=== PATIENT | female | born 1960 | race Caucasian/White ===

== ENCOUNTER → 2023-07-21 | Outpatient (CLI) | payer MEDICARE, BC, SELFPAY ==
[2023-07-21 18:02] LABS: Ferritin 94 ng/mL (8-252)
[2023-07-25 12:08] LABS: Anti-Nuclear Antibody Test Positive (.)
== END | disposition home or self-care (01) ==
LOC: MTLAB 16:39
PROVIDERS: PCP Family Medicine; Referring Provider Physician Assistant; Visit Provider Physician Assistant
DX: L65.0 Telogen effluvium (principal); R63.4 Abnormal weight loss; E03.8 Other specified hypothyroidism; F43.0 Acute stress reaction
CPT/HCPCS: 36415; 82728; 86038

== ENCOUNTER 2023-08-16 15:08 | Emergency (ER) | payer MEDICARE, BC, SELFPAY ==
[2023-08-16 15:09] VITALS: BP 131/77; PULSE 98; RESP 16; TEMP 36.2; O2SAT 99; BMI 23.6
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
--- NOTE | 2023-08-16 15:15 | EKG12_ITS ---
Test Reason : DYSRHYTHMIA Blood Pressure : / mmHG Vent. Rate : 126 BPM Atrial Rate : 126 BPM P-R Int : 000 ms QRS Dur : 082 ms QT Int : 354 ms P-R-T Axes : 000 002 041 degrees QTc Int : 512 ms Sinus tachycardia with Sinus arrhythmia/PVC Abnormal ECG Confirmed by GINNA SOTO, VINCENZO ([id number]), news videotape editor CHADWICK MORALES ([id number]) on 08/24/2023 10:42:59 AM Referred By: SHAE Confirmed By:VINCENZO CHACKO MD
[2023-08-16 15:17] VITALS: O2SAT 97
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
[2023-08-16] MEDS: 0.9% Normal Saline (1000mL) 1,000 ML 1000 ML IV (15:32)
[2023-08-16] MEDS: Tetracaine 0.5% Ophthalmic Bottle 1 DRP OPHTHALMIC (15:33)
[2023-08-16] MEDS: Fluorescein 1 MG STRIP 1 STRIP OPHTHALMIC (15:33)
[2023-08-16 15:42] LABS: Absolute Lymphocyte Count 1.57 X10^3/uL (0.83-4.51); Absolute Neutrophil Count 5.1 X10^3/uL (2.0-7.7); Basophil# 0.02 X10^3/uL; Basophil% 0.3 % (0-1); Eosinophil# 0.02 X10^3/uL; Eosinophils% 0.3 % (0-5); Hematocrit 40.4 % (37-47); Hemoglobin 13.5 g/dL (12.0-15.0); Lymphocyte # 1.57 X10^3/ul (0.83-4.51); Lymphocyte % 21.7 % (19-41); Mean Corp Hgb Conc 33.4 g/dL (32-36); Mean Corpuscular Hgb 30.7 pg (27.0-32.0); Mean Corpuscular Volume 91.8 fL (81-99); Mean Platelet Vol. 9.1 fl (6.2-12.0); Monocyte# 0.42 X10^3/uL; Monocyte% 5.8 % (0-10); NRBC Flagged by Analyzer 0 % (0-5); Neutrophil # 5.12 X10^3/uL (2.7-7.7); Neutrophil % 70.8 % (47-70); Platelet Count 283 K/mm3 (150-450); RBC Distribution Width CV 13.2 % (11.6-14.6); White Blood Count 7.2 K/mm3 (4.4-11.0)
--- NOTE | 2023-08-16 15:50 | RAD_ITS ---
INDICATION: syncope EXAMINATION/TECHNIQUE: X-RAY - XR Chest 1 View COMPARISON: None. FINDINGS: The lungs are clear. Tortuous and calcified thoracic aorta. The heart is mildly enlarged. No pleural effusion or pneumothorax. No acute osseous abnormalities. RAD/Chest 1 View (Portable) IMPRESSION: No acute radiographic abnormalities. Electronically Signed: Miguel Lau MD at 16:52 EST ,
[2023-08-16 15:59] LABS: ALB/GLOB Ratio 1.1 RATIO (0.9-2.4); AST(SGOT) 23 U/L (15-37); Alanine Aminotransfer ALT/SGPT 32 U/L (13-56); Albumin, Serum 3.8 g/dL (3.2-5.0); Alkaline Phosphatase 64 U/L (45-117); Anion Gap 9 (5-15); BUN 11 mg/dL (7-18); BUN/Creat Ratio 17.9 RATIO (10-20); Calcium,Total 8.6 mg/dL (8.5-10.1); Chloride 108 mmol/L (98-107); Creatinine, Serum 0.61 mg/dL (0.55-1.02); EST Glomerular Filtration Rate 104 mL/min (>60); Est Glom Filt Rate - Afr Amer 126 mL/min (>60); Estimated Creatinine Clearance 76.06 ml/min; Globulin 3.4 g/dL (2.2-4.2); Glucose 116 mg/dL (74-106); Potassium 3.4 mmol/L (3.5-5.1); Protein, Total 7.2 g/dL (6.4-8.2); Sodium Level 140 mmol/L (136-145); Troponin-I HS (w/2H Reflex) 9 pg/mL (3.0-54.0)
[2023-08-16 16:16] LABS: Lactic Acid 1.7 mmol/L (0.4-1.9)
[2023-08-16 17:34] LABS: Reflex Troponin-HS? (from REC) Y
--- NOTE | 2023-08-16 18:33 | EKG12_ITS ---
Test Reason : DYSRHYTHMIA Blood Pressure : / mmHG Vent. Rate : 090 BPM Atrial Rate : 090 BPM P-R Int : 186 ms QRS Dur : 072 ms QT Int : 376 ms P-R-T Axes : 023 -05 048 degrees QTc Int : 459 ms Sinus rhythm with marked sinus arrhythmia with occasional Premature ventricular complexes Low voltage QRS Borderline ECG Confirmed by GINNA SOTO, VINCENZO ([id number]), industrial editor CHADWICK MORALES ([id number]) on 08/24/2023 10:42:11 AM Referred By: SHAE Confirmed By:VINCENZO CHACKO MD
[2023-08-16 18:51] LABS: Troponin-I HS 20 pg/mL (3.0-54.0)
[2023-08-16 19:08] VITALS: PULSE 83
[2023-08-16 19:14] VITALS: BP 109/69; BP 116/69; BP 126/86; PULSE 106; PULSE 86; PULSE 96
[2023-08-16 19:55] VITALS: BP 116/69; PULSE 95; RESP 16; O2SAT 97
== END 2023-08-16 19:57 | disposition home or self-care (01) ==
PROVIDERS: Emergency Provider Emergency Medicine; PCP Family Medicine; Visit Provider Emergency Medicine
DX: S00.211A Abrasion of right eyelid and periocular area, initial encounter (principal); H54.7 Unspecified visual loss; Z87.891 Personal history of nicotine dependence; R51.9 Headache, unspecified; Z79.899 Other long term (current) drug therapy; Z79.890 Hormone replacement therapy; Z79.82 Long term (current) use of aspirin; V47.5XXA Car driver injured in collision with fixed or stationary object in traffic accident, initial encounter
CPT/HCPCS: 70450; 70486; 71045; 80053; 83605; 84484; 85025; 93005; 96360; 96361; 99285; J7030; A4216